=== PATIENT | male | born 1980 | race American Indian/Alaskan Native ===

== ENCOUNTER 2017-04-18 17:12 | Emergency (ER) | payer SELFPAY ==
[2017-04-18] MEDS ORDERED: ZOFRAN ODT PO ONE (19:29)
[2017-04-18] MEDS ORDERED: XYLOCAINE 2% INFILTRATI ONE (19:30)
[2017-04-18] MEDS: MORPHINE IV ONE ×2 (19:53→20:53)
[2017-04-18 20:35] VITALS: BP 124/76
[2017-04-18] MEDS ORDERED: MORPHINE IM ONE (20:43)
--- NOTE | 2017-04-18 22:14 | Emergency Department Report ---
HPI - General Chief Complaint: Rectal Pain Time Seen by Provider: 04/18/17 19:28 - HPI HPI: The patient is a 36-year-old male who presents for evaluation of ankle pain. The patient reports constant and severe 10/10 in severity throbbing in quality pain to the anus exacerbated with defecation, present since yesterday afternoon , approximately 24 hours prior to my evaluation. He states that his pain is consistent with pain experienced with hemorrhoids in the past. The patient denies fever, chills, night sweats, diarrhea, blood in the stool, dark tarry stool, dysuria, hematuria, flank pain, genital discharge, inability to pass flatus. ED Past Medical Hx - Past Medical History Previous Medical History?: No - Surgical History Past Surgical History?: No - Social History Smoking Status: Current Every Day Smoker Substance Use Type: Alcohol - Medications Home Medications: Home Medications Medication Instructions Recorded Confirmed Last Taken Type Cephalexin [Keflex] 500 mg PO Q6HR #20 capsule 04/18/17 Unknown Rx Docusate Sodium [Colace] 100 mg PO BID #20 capsule 04/18/17 Unknown Rx HYDROcodone/APAP 7.5-325 [[place] 1 each PO Q8HR PRN #15 tablet 04/18/17 Unknown Rx 7.5-325 mg TAB] ED Review of Systems ROS: Stated complaint: INTERNAL PAIN Other details as noted in HPI Constitutional: denies: fever ENT: denies: throat or neck pain Respiratory: denies: cough, shortness of breath Cardiovascular: denies: chest pain Endocrine: denies unexplained weight loss or gain Gastrointestinal: denies: abdominal pain, nausea Genitourinary: reports rectal pain denies: dysuria Musculoskeletal: denies: leg swelling Skin: denies: rash Neurological: denies: headache Hematological/Lymphatic: denies: easy bleeding or easy bruising Psych: denies sadness or hopelessness Physical Exam - Physical Exam Vital Signs: Vital Signs 04/18/17 04/18/17 04/18/17 17:18 20:26 20:34 Temperature 97.9 F Pulse Rate 92 H 72 Respiratory 16 18 18 Rate Blood Pressure 131/86 Blood Pressure 124/76 [Left] O2 Sat by Pulse 100 98 Oximetry Physical Exam: General: well-nourished, well-developed, no acute distress Head: Normocephalic, atraumatic Eyes: normal sclera ENT: Mucous membranes are pink and moist Neck: trachea midline, neck supple, No neck stiffness, no cervical adenopathy Respiratory: Breath sounds equal bilaterally, no wheezing, rales, or rhonchi Cardio: S1 and S2 present, no murmurs, rubs, gallops, capillary refill is brisk Abdomen: Normoactive bowel sounds, soft abdomen, no rigidity, no guarding or rebound tenderness : thrombosed external hemorrhoid present to the anus in 9'oclock position, anal orifice is patent, rectal tone is intact, no bleeding, no perineum tenderness, redness, fullness or fluctuance Musc: No pitting edema Skin: No rash Neuro: no facial drooping, normal speech Psych: Normal affect ED Course Vital Signs 04/18/17 04/18/17 04/18/17 17:18 20:26 20:34 Temperature 97.9 F Pulse Rate 92 H 72 Respiratory 16 18 18 Rate Blood Pressure 131/86 Blood Pressure 124/76 [Left] O2 Sat by Pulse 100 98 Oximetry ED Medical Decision Making - Medical Decision Making The patient was seen and examined by myself. The patient is placed on a monitoring specialist and continuous pulse ox. On initial evaluation, the patient was found to be in no distress. Evaluation orders were placed. The patient is given IM morphine for his pain. The patient's thrombosed external hemorrhoid is incised and the thrombus is removed. Lidocaine without epinephrine was used for local anesthetic. The patient was reevaluated and reported that his symptoms were markedly improved. The patient started on antibiotic for prophylaxis. The patient is stable for discharge with outpatient follow-up. The patient is given follow-up and return instructions. The patient expressed understanding and agreed with the plan. The patient is discharged in stable condition. Critical care attestation.: If time is entered above; I have spent that time in minutes in the direct care of this critically ill patient, excluding procedure time. ED Disposition Clinical Impression: Thrombosed external hemorrhoids, Rectal or anal pain Disposition: DISCHARGED TO HOME OR SELFCARE Is pt being admited?: No Does the pt Need Aspirin: No Condition: Stable Instructions: Hemorrhoids (ED), Hemorrhoidectomy (ED) Additional Instructions: Do not take more than the prescribed dose of pain medicine, or combine or take the pain medicine prescribed to you today with other pain medicine, sleeping medicine or other sedatives, or with alcohol, as doing so may cause central nervous system sedation and respiratory depression, and potentially cause you to stop breathing and . Additionally, do not drive a vehicle, operate heavy machinery, or engage in any activity that would cause harm to yourself or others after taking the pain medicine prescribed to you. Prescriptions: Cephalexin [Keflex] 500 mg PO Q6HR #20 capsule Docusate Sodium [Colace] 100 mg PO BID #20 capsule HYDROcodone/APAP 7.5-325 [[place] 7.5-325 mg TAB] 1 each PO Q8HR PRN #15 tablet PRN Reason: Pain Referrals: BRITNEY VILLAR MD [Staff Physician] - 3-5 Days [facility] [Provider Group] - 3-5 Days Forms: Work/School Release Form(ED) Time of Disposition: 22:11
== END 2017-04-18 22:39 | disposition home or self-care (01) ==
LOC: ED 17:12
DX: K64.5 Perianal venous thrombosis (principal); F17.200 Nicotine dependence, unspecified, uncomplicated
CPT/HCPCS: 46083; 96372; 99283; J2270; Q0162

== ENCOUNTER 2020-12-13 21:45 | Emergency (ER) | payer SELFPAY | END 2020-12-13 23:41 | disposition left against medical advice (07) | LOC: ED 21:45 | DX: Z00.8 Encounter for other general examination (principal); Z53.21 Procedure and treatment not carried out due to patient leaving prior to being seen by health care provider ==

== ENCOUNTER 2022-04-03 15:26 | Emergency (ER) | payer SELFPAY ==
[2022-04-04] MEDS ORDERED: TETANUS,DIPHTHERIA TOXOID ADULT 0.5 ML INJ IM ONE (01:13)
--- NOTE | 2022-04-04 01:13 | Emergency Department Report ---
ED General Adult HPI - General Chief complaint: Laceration/Recheck/Suture Stated complaint: INJURIED FINGER Time Seen by Provider: 04/04/22 00:49 Source: patient Mode of arrival: Ambulatory Limitations: No Limitations - History of Present Illness Initial comments: patient presents with complaints of pain and laceration to his R middle finger that he suffered ~ 22 hours ago. States it was from a metallic cord in his garage. Denies any numbness, weakness in the finger. Does not remember his lat tetanus shot. - Related Data Previous Rx's Medication Instructions Recorded Last Taken Type Docusate Sodium [Colace] 100 mg PO BID #20 capsule 04/18/17 Unknown Rx HYDROcodone/APAP 7.5-325 [[place] 1 each PO Q8HR PRN #15 tablet 04/18/17 Unknown Rx 7.5-325 mg TAB] cephALEXin [Keflex] 500 mg PO Q6HR #20 capsule 04/18/17 Unknown Rx clindamycin HCL [Clindamycin HCl] 1 cap PO TID 10 Days #30 cap 04/04/22 Unknown Rx Allergies Allergy/AdvReac Type Severity Reaction Status Date / Time No Known Allergies Allergy Verified 04/04/22 01:20 ED Review of Systems ROS: Stated complaint: INJURIED FINGER Other details as noted in HPI Comment: All other systems reviewed and negative Constitutional: denies: chills, fever ED Past Medical Hx - Past Medical History Previous Medical History?: No - Social History Smoking Status: Current Every Day Smoker Substance Use Type: Alcohol - Medications Home Medications: Home Medications Medication Instructions Recorded Confirmed Last Taken Type Docusate Sodium [Colace] 100 mg PO BID #20 capsule 04/18/17 Unknown Rx HYDROcodone/APAP 7.5-325 [[place] 1 each PO Q8HR PRN #15 tablet 04/18/17 Unknown Rx 7.5-325 mg TAB] cephALEXin [Keflex] 500 mg PO Q6HR #20 capsule 04/18/17 Unknown Rx clindamycin HCL [Clindamycin HCl] 1 cap PO TID 10 Days #30 cap 04/04/22 Unknown Rx ED Physical Exam - General Limitations: No Limitations General appearance: alert, in no apparent distress - Head Head exam: Present: atraumatic, normocephalic - Eye Eye exam: Present: PERRL, EOMI - ENT ENT exam: Present: mucous membranes moist, other (airway patent) - Neck Neck exam: Present: other (supple; no JVD) - Respiratory Respiratory exam: Present: other (good air entry, nml I:E, CTAB, no use of CHRISTINA) - Cardiovascular Cardiovascular Exam: Present: regular rate. Absent: rubs, gallop - GI/Abdominal GI/Abdominal exam: Present: soft, normal bowel sounds. Absent: distended, tenderness - Extremities Exam Extremities exam: Present: other (laceration ~ 1.5 cm in length in medial R middle finger jextaposed to PIP, fibrin glued, not dehiscing; neurovascularly a nd tendon function intact, both flexor and extensor) - Back Exam Back exam: Present: full ROM. Absent: tenderness - Neurological Exam Neurological exam: Present: alert, oriented X3, CN II-XII intact. Absent: motor sensory deficit - Skin Skin exam: Present: other (see extremity) ED Course Vital Signs 04/03/22 04/04/22 15:37 03:07 Temperature 98.4 F 98.2 F Pulse Rate 92 H 78 Respiratory 18 16 Rate Blood Pressure 134/92 Blood Pressure 112/78 [Left] O2 Sat by Pulse 100 100 Oximetry ED Medical Decision Making - Lab Data XR R finger: no fracture or dislocation; no FB in laceration (wet read by Dr. Gibson) - Medical Decision Making Sutures not placed in wound as it has been present for > 18 hours. Wound cleaned. steri strips placed. Received tetanus toxoid 0.5 ml IM x 1 Critical care attestation.: If time is entered above; I have spent that time in minutes in the direct care of this critically ill patient, excluding procedure time. ED Disposition Clinical Impression: Finger laceration Disposition: 06 HOME HEALTH CARE SERVICE Is pt being admited?: No Does the pt Need Aspirin: No Condition: Stable Instructions: Nonsutured Laceration Care Additional Instructions: Follow up with your regular doctor in 1 - 2 days. Return to the ER if your symptoms worsen. Prescriptions: clindamycin HCL [Clindamycin HCl] 1 cap PO TID 10 Days #30 cap Referrals: ARMEN VASQUEZ MD [Primary Care Provider] - 3-5 Days Time of Disposition: 02:54
[2022-04-04 03:08] VITALS: BP 112/78
--- NOTE | 2022-04-04 03:46 | XRay Report ---
Right fingers, 3 views HISTORY: Laceration COMPARISON: None FINDINGS: Evidence of soft tissue laceration of the ulnar aspect of the right middle finger without radiopaque foreign body. No acute fracture or malalignment. There is a 4 mm rectangular radiopaque density proje cting in the ulnar/palmar aspect of the hand. This could reflect foreign body, age-indeterminate. Signer Name: Preston Brambila MD Signed: 04/04/2022 3:42 AM Workstation Name: [id number]
== END 2022-04-04 03:07 | disposition home health service (06) ==
LOC: ED 15:26
DX: S61.212A Laceration without foreign body of right middle finger without damage to nail, initial encounter (principal); F17.200 Nicotine dependence, unspecified, uncomplicated; Z79.899 Other long term (current) drug therapy; X58.XXXA Exposure to other specified factors, initial encounter; Y93.89 Activity, other specified; Y92.89 Other specified places as the place of occurrence of the external cause; Y99.8 Other external cause status
CPT/HCPCS: 90471; 90714; 99283